=== PATIENT | female | born 1970 | race Caucasian/White ===

== ENCOUNTER 2016-07-28 16:18 | Emergency (ER) | payer OTHER ==
[2016-07-28 16:26] VITALS: BP 133/72; PULSE 81; BMI 19.5
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
[2016-07-28 21:32] VITALS: TEMP 97.6
== END 2016-07-28 21:32 | disposition home or self-care (01) ==
LOC: JERFT 16:18
DX: S09.8XXA Other specified injuries of head, initial encounter (principal); W50.0XXA Accidental hit or strike by another person, initial encounter; Y93.89 Activity, other specified; Y92.038 Other place in apartment as the place of occurrence of the external cause
CPT/HCPCS: 70450-TC; 84703; 99281-25